=== PATIENT | male | born 1975 | race Caucasian/White ===

== ENCOUNTER 2022-10-16 15:20 | Inpatient (IN) | payer MEDICAID ==
[~2022-10-16] VITALS: Ht 188 cm; Wt 67.8 kg
--- NOTE | 2022-10-16 16:00 | NUR ---
ADMIT NOTE: Pt. admitted from [facility] on 5150 for DTS. 5150 states, "You present with hopelessness andhelplessness, and do not feel "Important or useful". Pt. reports SI 3 days ago after feeling disrespected by his parents, pt. states, "They are not loyal". Pt. reports he had plan to OD on insulin. Pt. reports SA by OD with insulin back in May 2022 which the pt. only went to an urgent care for. Pt. reports no previous psych hx. Pt. is a type 1 diabetic and was started on hospital protocol. Pt. also has hx of hyperlipidemia. Pt. currently denies SI. Pt. reports recent loss of job and housing. Pt. reports he does not have insurance to get insulin. Pt. requesting assistance getting on medi-[place]. Pt.
[2022-10-16] MEDS ORDERED: magnesium hydroxide 30ml (MOM) UD suspension PO PRN (16:10)
[2022-10-16] MEDS ORDERED: NICOTINE POLACRILEX 2 MG LOZENGE BC PRN (16:10)
[2022-10-16] MEDS ORDERED: loperamide 2mg capsule PO PRN (16:10)
[2022-10-16] MEDS ORDERED: acetaminophen 325mg tablet PO PRN ×2 (16:10)
[2022-10-16] MEDS ORDERED: mag hydrox/Alum hydrox/simeth 30ml oral suspension PO PRN (16:10)
[2022-10-16 16:21] VITALS: BP 108/85; PULSE 124; RESP 12; TEMP 98.3; O2SAT 97
[2022-10-16 16:50] VITALS: RESP 12; O2SAT 97
[2022-10-16] MEDS ORDERED: INSU100V55 SQ (17:53)
[2022-10-16] MEDS ORDERED: ATOR10TA87 PO (17:53)
[2022-10-16] MEDS ORDERED: NOVRI (17:53)
[2022-10-16] MEDS ORDERED: MESSAGE TO PHARMACY PO ONE (18:10)
[2022-10-16] MEDS ORDERED: dextrose 50%-water 50ml dispensing syringe IV PRN ×2 (18:10)
[2022-10-16] MEDS ORDERED: DEXTROSE 15 GM of carb/4 tabs (each vial/BOTTLE has 4 tablets) PO PRN ×2 (18:10)
[2022-10-16] MEDS ORDERED: glucagon, human recombinant 1mg kit SUBCUT PRN (18:10)
[2022-10-16 20:00] VITALS: BP 127/96; PULSE 104; RESP 18; TEMP 97.9; O2SAT 100
[2022-10-16] MEDS ORDERED: insulin glargine (Lantus) pen - multi-dose SQ SCH (21:00)
--- NOTE | 2022-10-16 23:56 | NUR ---
Problem: NOTE: Pt. admitted from [facility] on 5150 for DTS. 5150 states, "You present with hopelessness and helplessness, and do not feel "Important or useful". Pt. reports SI 3 days ago after feeling disrespected by his parents, pt. states, "They are not loyal". Pt. reports he had plan to OD on insulin. Pt. reports SA by OD with insulin back in May 2022 which the pt. only went to an urgent care for. Pt. reports no previous psych hx. Pt. is a type 1 diabetic and was started on hospital protocol. Pt. also has hx of hyperlipidemia. Pt. currently denies SI. Pt. reports recent loss of job and housing. Pt. reports he does not have insurance to get insulin. Pt. requesting assistance getting on medi-[place]. Interventions: Maintained a safe and supportive environment, medication administration/education/monitoring, provided clear and simple instructions, provided active listening and positive encouragement, maintained fall precautions, and maintained Q 15 min safety checks. Response: Pt pleasant and cooperative. Pt remained in the rec room until his dinner tray came at 1999. Pt states he is depressed and going through it. Pt did not want to elaborate. Denies SI. Pts HS blood sugar 305, 12 units lantis given. Pt remained in the rec room watching TV until bedtime. Plan: pt requires medication adjustments and a safe and supportive environment.
[2022-10-17 07:28] VITALS: BP 102/69; PULSE 114; RESP 16; TEMP 97.8; O2SAT 97
[2022-10-17] MEDS: nicotine 21mg patch - 24 hr TD SCH (08:00)
[2022-10-17 08:12] LABS: CHOL/HDL RATIO 3.3 (0.00-4.99); CHOLESTEROL 212 MG/DL (0-200); HDL CHOLESTEROL 65 MG/DL (35-60); LDL CHOLESTEROL 123 MG/DL (50-100); TRIGLYCERIDES 93 MG/DL (20-135)
[2022-10-17 08:27] LABS: HEMOGLOBIN A1C 8.9 % (4.5-6.2)
[2022-10-17] MEDS: insulin Lispro (HumaLOG) vial - multi-dose SQ SCH ×3 (08:47→18:14)
[2022-10-17] MEDS: atorvastatin 10mg tablet PO SCH (08:52)
--- NOTE | 2022-10-17 10:12 | NUR ---
DM Consult: Pt hx T1DM A1C 8.9% admit DX SI plan to OD on insulin per EMR. Pt not appropriate for DM ed at this time. Pt PO 100% first meal WS yesterday and 100% breakfast today per RN. PB d/w RN will add double proteins w/ BIDLD for satiety given large stature- dietary notified. Rec: 1. continue carb controlled diet; double proteins BIDLD for satiety given large stature Addendum: 10/17/22 at [address] Amended: Links added.
--- NOTE | 2022-10-17 16:27 | NUR ---
Nursing Progress Note: Trevor Problem: NOTE: Pt. admitted from [facility] on 5150 for DTS. 5150 states, "You present with hopelessness and helplessness, and do not feel "Important or useful". Pt. reports SI 3 days ago after feeling disrespected by his parents, pt. states, "They are not loyal". Pt. reports he had plan to OD on insulin. Pt. reports SA by OD with insulin back in May 2022 which the pt. only went to an urgent care for. Pt. reports no previous psych hx. Pt. is a type 1 diabetic and was started on hospital protocol. Pt. also has hx of hyperlipidemia. Pt. currently denies SI. Pt. reports recent loss of job and housing. Pt. reports he does not have insurance to get insulin. Pt. requesting assistance getting on medi-[place]. Interventions: Maintained a safe and supportive environment, medication administration/education/monitoring, provided clear and simple instructions, provided active listening and positive encouragement, maintained fall precautions, and maintained Q 15 min safety checks. Response: Patient was received sitting in community room. Patients blood sugar was checked and read 319. Due to being 304 last night patient was moved up to level 2 and was given 14 units of Humalog. Patient refused nicotine lozenge and retuned to watching tv. Patient spent all shift in community room watching tv. Patient spoke very little to others. Patient blood sugar was checked again and read 242. Patient was then moved up to level 3 and given 16 units of Humalog. Patient stated he takes a lot of insulin at home. Patient stated he has waves of feeling suicidal. but was not feeling so now. Plan: pt requires medication adjustments and a safe and supportive environment. Addendum: 10/17/22 at 1804 by Hardy Arenas LVN Patients 1700 blood sugar read 220. Patient is now on level 4
--- NOTE | 2022-10-17 18:06 | NUR ---
LEGAL ADVISER DOCUMENTATION I have reviewed Hardy LEGAL ADVISER documentation.
[2022-10-17 19:26] VITALS: BP 112/76; PULSE 96; RESP 16; TEMP 98.7; O2SAT 99
[2022-10-17 19:45] VITALS: RESP 16; O2SAT 97
[2022-10-17] MEDS: insulin glargine (Lantus) pen - multi-dose SQ SCH (20:53)
--- NOTE | 2022-10-18 05:23 | NUR ---
Nursing Progress Note: Problem: NOTE: Pt. admitted from [facility] on 5150 for DTS. 5150 states, "You present with hopelessness and helplessness, and do not feel "Important or useful". Pt. reports SI 3 days ago after feeling disrespected by his parents, pt. states, "They are not loyal". Pt. reports he had plan to OD on insulin. Pt. reports SA by OD with insulin back in May 2022 which the pt. only went to an urgent care for. Pt. reports no previous psych hx. Pt. is a type 1 diabetic and was started on hospital protocol. Pt. also has hx of hyperlipidemia. Pt. currently denies SI. Pt. reports recent loss of job and housing. Pt. reports he does not have insurance to get insulin. Pt. requesting assistance getting on medi-[place]. Interventions: Maintained a safe and supportive environment, medication administration/education/monitoring, provided clear and simple instructions, provided active listening and positive encouragement, maintained fall precautions, and maintained Q 15 min safety checks. Response: Upon arrival to shift noted patient sitting up in dining room watching TV. Quiet demeanor. Fair eye contact. Tall thin man wearing clean green scrubs with eyeglasses. Appears to have sad affect. Denies SI, HI, AH and VH. Report that the reason behind why he is, here, is a long story. Reports loss of job, loss of insurance, needing new provider and new therapist in addition to difficulty getting his prescriptions filled. Patient is a brittle diabetic. Patient reports high blood sugars today and a lot of insulin. Reports that he is aware when his blood glucose is too low. At , Held 1 unit Humalog per sliding orders per nursing judgement and apparent patient hesitation. Reports that he had a lot of insulin on . Administered Lantus 24 units at . Reports MD was being conservative in ordering 24 units as he takes 36 units at home. [place] comfortable and confirms that he will let nurse know if he feels a drop in the blood sugar level. At 0 patient reports to nurse that he needs his blood glucose checked. BG resulted critical LOW 48. Gave patient a sandwich, juice and 2 cheese sticks. Refused glucose tabs per PRN orders. Follow-up blood glucose resulted at 76. Followed up a 3rd check of 167. Patient states, Okay Im good. No PRNs given. Compliant with meds. Will continue to monitor. Plan: pt requires medication adjustments and a safe and supportive environment.
[2022-10-18 07:00] VITALS: RESP 16; O2SAT 98
[2022-10-18 08:00] VITALS: BP 114/73; PULSE 86; RESP 16; TEMP 97.9; O2SAT 98
[2022-10-18] MEDS ORDERED: ESCITALOPRAM OXALATE 5 MG TABLET PO SCH (08:00)
[2022-10-18] MEDS: nicotine 21mg patch - 24 hr TD SCH (08:00)
[2022-10-18] MEDS: insulin Lispro (HumaLOG) vial - multi-dose SQ SCH ×3 (08:25→18:24)
[2022-10-18] MEDS: atorvastatin 10mg tablet PO SCH (08:49)
--- NOTE | 2022-10-18 15:37 | NUR ---
Nursing Progress Note: Problem : Pt. admitted from [facility] on 5150 for DTS. 5150 states, "You present with hopelessness and helplessness, and do not feel "Important or useful". Pt. reports SI 3 days ago after feeling disrespected by his parents, pt. states, "They are not loyal". Pt. reports he had plan to OD on insulin. Interventions : Introduced self and established rapport, maintained a safe and supportive environment, ensured contract for safety, provided active listening, monitored blood sugars and maintained diabetic protocol as ordered, and maintained Q 15min safety checks. Response : Received pt. sleeping in bed at the beginning of the shift. He attended breakfast in the Group Room and remained up throughout much of the shift watching TV and playing [employer]. Pt. was not observed to be interacting much with others. This publicity writer introduced herself and 1:1 was completed, pt. presents as cooperative, pleasant, and guarded. He exhibits a blunted affect. Pt. denies any S/I, H/I, A/V/PAYNE, and no delusional statements were made. When questioned regarding any depression or anxiety, pt. stated in a manner which appears to be minimizing, "I'm pretty neutral right now." This publicity writer monitored pt's blood sugars before each meal and maintained the diabetic protocol per orders. Pt. tolerated this well. Plan : Pt. requires interruption of current crisis, medication adjustments, and a safe and supportive environment.
[2022-10-18 19:28] VITALS: RESP 16; O2SAT 98
[2022-10-18 19:50] VITALS: BP 130/88; PULSE 76; RESP 16; TEMP 98.5; O2SAT 98
[2022-10-18] MEDS: ESCITALOPRAM OXALATE 5 MG TABLET PO SCH (20:03)
[2022-10-18] MEDS: insulin glargine (Lantus) pen - multi-dose SQ SCH (20:15)
--- NOTE | 2022-10-19 03:59 | NUR ---
Nursing Progress Note: Problem : Patient is brittle diabetic, closely monitored accucheck and mood. Blood sugars are more stable than prior day. Also patient wants to discharge sooner than what is suggested. Interventions : Introduced self and established rapport, maintained a safe and supportive environment, ensured contract for safety, provided active listening, monitored blood sugars and maintained diabetic protocol as ordered, and maintained Q 15min safety checks. Response : Upon arrival to shift noted patient sitting up in dining room playing at[employer]. Noted to be wearing clean green scrubs with eyeglasses and hair brushed/slicked back. Flat affect noted. Denies SI, HI, AH and VH. Reports disappointment in not discharging tomorrow and that providers said itd be October 23. Patient is concerned due to needing to turn in paperwork. Blood glucose trend improved from yesterday. Compliant with HS meds. No PRNs given. Stayed up playing atVenuire in dining room late. Will continue to monitor. Plan : Pt. requires interruption of current crisis, medication adjustments, and a safe and supportive environment.
[2022-10-19 07:00] VITALS: RESP 12; O2SAT 99
[2022-10-19 08:00] VITALS: BP 132/82; PULSE 80; RESP 12; TEMP 97.4; O2SAT 99
[2022-10-19] MEDS: nicotine 21mg patch - 24 hr TD SCH (08:00)
[2022-10-19] MEDS: atorvastatin 10mg tablet PO SCH (08:13)
[2022-10-19] MEDS: insulin Lispro (HumaLOG) vial - multi-dose SQ SCH ×3 (08:21→18:23)
[2022-10-19] MEDS ORDERED: traMADol 50MG tablet PO PRN (08:50)
[2022-10-19 08:53] LABS: HBSAG SCREEN Negative (Negative); HEP B CORE AB, TOT Negative (Negative)
--- NOTE | 2022-10-19 09:35 | NUR ---
Initial: Pt admit for depression with SI. Pt currently on a CHO controlled diet with double protein BIDLD and eating well, documented with 100% PO intake meeting estimated nutrient needs. LBM 10/18 per EMR. No further nutrition intervention implemented at this time. Will continue to follow and make recommendations as appropriate. Recommendations: 1. Continue carb controlled diet; double protein BIDLD for satiety given large stature 2. Bowel care PRN 3. Weekly scaled weights Addendum: 10/19/22 at [address] Amended: Links added.
--- NOTE | 2022-10-19 15:22 | NUR ---
Nursing Progress Note: Problem : Pt. admitted from [facility] on 5150 for DTS. 5150 states, "You present with hopelessness and helplessness, and do not feel "Important or useful". Pt. reports SI 3 days ago after feeling disrespected by his parents, pt. states, "They are not loyal". Pt. reports he had plan to OD on insulin. Interventions : Maintained a safe and supportive environment, ensured contract for safety, provided active listening and positive encouragement, monitored blood sugars and maintained diabetic protocol as ordered, and maintained Q 15min safety checks. Response : Received pt. sleeping in bed at the beginning of the shift. He awoke early and attended breakfast in the Group Room. Pt. again remained up throughout the morning and much of the day, sitting in the Group Room, however he remains withdrawn form others. He continues to exhibit a blunted affect. Pt. is guarded with conversation and again appears to be minimizing any mental health s/s. He denies any S/I and states in a guarded manner, "I'm pretty good." Pt. does endorse his desire to discharge and return back home and reports he is just waiting to set things up with the psychosocial rehabilitation counselor. This underwriter solicitation director monitored pt's blood sugars before each meal and maintained the diabetic protocol per orders. Pt. continues to tolerate this well. Plan : Pt. medication adjustments, and a safe and supportive environment.
--- NOTE | 2022-10-19 15:36 | NUR ---
[facility] REFERRAL Completed and sent [facility] referral. WINSTON Zee
[2022-10-19 19:00] VITALS: BP 126/71; PULSE 73; RESP 14; TEMP 98.1; O2SAT 100
[2022-10-19 19:30] VITALS: RESP 14; O2SAT 100
[2022-10-19] MEDS: insulin glargine (Lantus) pen - multi-dose SQ SCH (20:34)
[2022-10-19] MEDS: ESCITALOPRAM OXALATE 5 MG TABLET PO SCH (20:39)
--- NOTE | 2022-10-20 04:24 | NUR ---
Nursing Progress Note: Problem : Pt. admitted from [facility] on 5150 for DTS. 5150 states, "You present with hopelessness and helplessness, and do not feel "Important or useful". Pt. reports SI 3 days ago after feeling disrespected by his parents, pt. states, "They are not loyal". Pt. reports he had plan to OD on insulin. Interventions : Maintained a safe and supportive environment, ensured contract for safety, provided active listening and positive encouragement, monitored blood sugars and maintained diabetic protocol as ordered, and maintained Q 15min safety checks. Response: Upon arrival to shift noted patient walking into doctors office for chat. Later seen playing [employer] in group room after dinner. Wearing clean green scrubs with good hygiene, hair slicked back and wearing glasses. Keeps to himself. Withdrawn. Not seen socializing with cohort. Eager to get out of here. [facility] referral sent today. Pleasant, calm, and cooperative Compliant with HS med except refused Lexapro this shift. Reports it makes his thinking less clear. According to Jarekeys note, Lexapro will be dcd since patient reports no positive effects. Hospitalist added Lisinopril (renal protection) for HTN on dayshift. No PRNs this shift. Will continue to monitor. Plan : Pt. medication adjustments, and a safe and supportive environment. Plan : Pt. medication adjustments, and a safe and supportive environment.
[2022-10-20 07:09] VITALS: BP 122/77; PULSE 81; RESP 16; TEMP 98; O2SAT 100
[2022-10-20 07:19] LABS: BASOPHILS % (AUTO) 0.5 % (0-1); EOSINOPHILS # (AUTO) 0.2 X10'3 (0-0.9); EOSINOPHILS % (AUTO) 2.6 % (0-6); HEMATOCRIT 43.5 % (42.0-52.0); HEMOGLOBIN 14.9 g/dl (14.0-17.9); LYMPHOCYTES # (AUTO) 2.8 X10'3 (1.1-4.8); LYMPHOCYTES % (AUTO) 44.5 % (21-51); MEAN CORPUSCULAR HEMOGLOBIN 31.6 PG (27.0-31.0); MEAN CORPUSCULAR HGB CONC 34.3 g/dL (33.0-36.5); MEAN CORPUSCULAR VOLUME 92.2 FL (78-98); MEAN PLATELET VOLUME 8.7 FL (7.4-10.4); MONOCYTES # (AUTO) 0.5 X10'3 (0-0.9); MONOCYTES % (AUTO) 8.5 % (2-12); NEUTROPHILS # (AUTO) 2.8 X10'3 (1.8-7.7); NEUTROPHILS % (AUTO) 43.9 % (42-75); PLATELET COUNT 194 X10'3 (140-440); RED BLOOD COUNT 4.72 X10'6 (4.70-6.10); RED CELL DISTRIBUTION WIDTH 12.7 % (11.5-14.5); WHITE BLOOD COUNT 6.3 X10'3 (4.5-11.0)
[2022-10-20 07:34] LABS: ALANINE AMINOTRANSFERASE 9 U/L (12-78); ALBUMIN/GLOBULIN RATIO 1.4 (1.1-1.5); ALKALINE PHOSPHATASE 37 IU/L (46-116); ANION GAP 9 (8-16); ASPARTATE AMINO TRANSFERASE 15 U/L (10-37); BILIRUBIN,TOTAL 0.6 MG/DL (0.1-1.0); BLOOD UREA NITROGEN 21 MG/DL (7-18); BUN/CREATININE RATIO 22.3 (10.0-20.0); CHLORIDE 104 MMOL/L (99-107); CREATININE 0.94 MG/DL (0.60-1.10); GLUCOSE 58 MG/DL (70-104); POTASSIUM 3.6 MMOL/L (3.5-5.1); SODIUM 142 MMOL/L (135-145); TOTAL CARBON DIOXIDE 29.5 MMOL/L (24-32); TOTAL PROTEIN 6.8 G/DL (6.4-8.2); eGFR 86 ML/MIN
[2022-10-20] MEDS: atorvastatin 10mg tablet PO SCH (07:35)
[2022-10-20] MEDS: lisinopril 10 MG tablet PO SCH (07:36)
[2022-10-20 07:55] VITALS: RESP 16; O2SAT 100
[2022-10-20] MEDS: insulin Lispro (HumaLOG) vial - multi-dose SQ SCH ×2 (13:20→21:00)
[2022-10-20] MEDS ORDERED: aspirin 81mg, enteric-coated 1 TAB TABLET.DR PO ONE (15:05)
--- NOTE | 2022-10-20 17:07 | NUR ---
Nursing Progress Note: Problem : Pt. admitted from [facility] on 5150 for DTS. 5150 states, "You present with hopelessness and helplessness, and do not feel "Important or useful". Pt. reports SI 3 days ago after feeling disrespected by his parents, pt. states, "They are not loyal". Pt. reports he had plan to OD on insulin. Interventions : Maintained a safe and supportive environment, ensured contract for safety, provided active listening and positive encouragement, monitored blood sugars and maintained diabetic protocol as ordered, and maintained Q 15min safety checks. Response: Patient seem reserved and quiet, was very agreeable to medication and BG testing during shift, Patient spends most of his time in the community room during the morning hours watching films with other client or keeping to self, playing [email or web address]. Patient was not medicated for morning carb intake because of his BG, but was during lunch, will continue to monitor. Patient treated with insulin at lunch and saved mandarin oranges just incase he feels low BG. Started on ASA today by PA. Plan : Pt. medication adjustments, and a safe and supportive environment. Plan : Pt. medication adjustments, and a safe and supportive environment.
[2022-10-20 19:00] VITALS: RESP 16; O2SAT 99
[2022-10-20 19:50] VITALS: BP 118/73; PULSE 72; RESP 16; TEMP 97.7; O2SAT 99
[2022-10-20] MEDS: insulin glargine (Lantus) pen - multi-dose SQ SCH (20:57)
[2022-10-20] MEDS: ESCITALOPRAM OXALATE 5 MG TABLET PO SCH (21:00)
--- NOTE | 2022-10-21 05:24 | NUR ---
Nursing Progress Note: Problem : Pt. admitted from [facility] on 5150 for DTS. 5150 states, "You present with hopelessness and helplessness, and do not feel "Important or useful". Pt. reports SI 3 days ago after feeling disrespected by his parents, pt. states, "They are not loyal". Pt. reports he had plan to OD on insulin. Interventions : Maintained a safe and supportive environment, ensured contract for safety, provided active listening and positive encouragement, monitored blood sugars and maintained diabetic protocol as ordered, and maintained Q 15min safety checks. Response: This patient was in community room following shift change. He socialized with his peers. 1:1 Interview in the community room. The patient speaks in a quiet voice with a regular rhythm. He denies S/I, H/I, or any hallucinations. Patient was medication compliant. No distress. Plan : Pt. medication adjustments, and a safe and supportive environment.
[2022-10-21 07:00] VITALS: BP 128/73; PULSE 97; RESP 16; TEMP 97.5; O2SAT 99
[2022-10-21] MEDS: atorvastatin 10mg tablet PO SCH (07:34)
[2022-10-21] MEDS: lisinopril 10 MG tablet PO SCH (07:36)
[2022-10-21] MEDS ORDERED: aspirin 81mg, enteric-coated 1 TAB TABLET.DR PO SCH (08:00)
[2022-10-21] MEDS ORDERED: lisinopril 2.5mg tablet PO SCH (08:00)
[2022-10-21] MEDS: insulin Lispro (HumaLOG) vial - multi-dose SQ SCH ×2 (08:49→13:42)
[2022-10-21 08:50] VITALS: BP_SYST 128; PULSE 53
--- NOTE | 2022-10-21 16:49 | NUR ---
Nurse note: PT requesting to leave now. Spoke with Galilea JOSEPH and she requests to convince him to wait until tomorrow for a proper discharge and manager social responsibility discharge plan. Spoke with pt and he states he will DC home and has his followup appt set up and requests the manager social responsibility follow up with him and call in his prescriptions tomorrow. Explained to pt that is not possible after discharge. Pt still wants to discharge today.
--- NOTE | 2022-10-21 17:25 | NUR ---
DISCHARGE NOTE: Patient is voluntary status and requested discharge. Patient denies SI. Patient reports that his is at home waiting for him. He is going to get his truck and then go home. Patient laughs that he is ready for a real shave. Patient escorted to front end assistant where they retrieved his knife. Patient has all belongings, medications. Patient is discharged in stable condition.
== END 2022-10-21 17:35 | disposition home or self-care (01) | DRG 755 ==
LOC: ADULT MH 15:58
PROVIDERS: ADMIT Psychiatry & Neurology Psychiatry; ATTEND Psychiatry & Neurology Psychiatry
DX: F43.25 Adjustment disorder with mixed disturbance of emotions and conduct (principal); E10.65 Type 1 diabetes mellitus with hyperglycemia; E78.5 Hyperlipidemia, unspecified; F17.210 Nicotine dependence, cigarettes, uncomplicated; F43.21 Adjustment disorder with depressed mood; F32.A Depression, unspecified; I10 Essential (primary) hypertension; Z79.4 Long term (current) use of insulin; Z63.9 Problem related to primary support group, unspecified; Z79.899 Other long term (current) drug therapy; Z56.0 Unemployment, unspecified
CPT/HCPCS: 36415; 80053; 80061; 82948; 83036; 85025; 86704; 86705; 87081; 87340; J1815

== ENCOUNTER 2023-08-24 08:59 | Inpatient (IN) | payer MEDICAID ==
[~2023-08-24] VITALS: Ht 188 cm; Wt 69.0 kg
[~2023-08-24 08:59] MED LIST: ATOR10TA87 PO; INSU100V55 SQ; NOVRI
[2023-08-24] MEDS ORDERED: mag hydrox/Alum hydrox/simeth 30ml oral suspension PO PRN (10:25)
[2023-08-24] MEDS ORDERED: loperamide 2mg capsule PO PRN (10:25)
[2023-08-24] MEDS ORDERED: acetaminophen 325mg tablet PO PRN ×2 (10:25)
[2023-08-24] MEDS ORDERED: magnesium hydroxide 30ml (MOM) UD suspension PO PRN (10:25)
[2023-08-24] MEDS ORDERED: glucagon, human recombinant 1mg kit SUBCUT PRN (11:10)
[2023-08-24] MEDS ORDERED: DEXTROSE 15 GM of carb/4 tabs (each vial/BOTTLE has 4 tablets) PO PRN ×2 (11:10)
[2023-08-24] MEDS ORDERED: INSU100V11 SQ (11:27)
[2023-08-24] MEDS ORDERED: BUPR-317 PO (11:27)
[2023-08-24] MEDS ORDERED: INSU100V9 SQ (11:32)
[2023-08-24] MEDS: INSULIN LISPRO 100 UNIT/ML INSULN.PEN MULTI-DOSE SQ SCH (12:28)
[2023-08-24] MEDS ORDERED: INSULIN LISPRO 100 UNIT/ML INSULN.PEN MULTI-DOSE SQ SCH (13:00)
[2023-08-24 19:00] VITALS: BP 112/69; PULSE 83; RESP 20; TEMP 97.2; O2SAT 100
[2023-08-24] MEDS ORDERED: insulin glargine (Lantus) pen - multi-dose SQ SCH ×2 (21:00)
[2023-08-24] MEDS: insulin glargine (Lantus) pen - multi-dose SQ SCH (21:03)
[2023-08-25 07:00] VITALS: RESP 14; O2SAT 99
[2023-08-25 07:27] LABS: HEMOGLOBIN A1C 8.2 % (4.5-6.2)
[2023-08-25 07:31] LABS: CHOL/HDL RATIO 3.2 (0.00-4.99); CHOLESTEROL 208 MG/DL (0-200); HDL CHOLESTEROL 65 MG/DL (35-60); LDL CHOLESTEROL 118 MG/DL (50-100); TRIGLYCERIDES 91 MG/DL (20-135)
[2023-08-25] MEDS: buPROPion SR 150mg tablet PO SCH (07:58)
[2023-08-25] MEDS ORDERED: dextrose 50%-water 50ml dispensing syringe IV PRN ×2 (08:30)
[2023-08-25] MEDS ORDERED: glucagon, human recombinant 1mg kit SUBCUT PRN (08:30)
[2023-08-25] MEDS ORDERED: DEXTROSE 15 GM of carb/4 tabs (each vial/BOTTLE has 4 tablets) PO PRN ×2 (08:30)
[2023-08-25 08:36] VITALS: BP 154/98; PULSE 66; RESP 14; TEMP 98.4; O2SAT 97
[2023-08-25] MEDS: INSULIN LISPRO 100 UNIT/ML INSULN.PEN MULTI-DOSE SQ SCH (12:00)
[2023-08-25 19:30] VITALS: RESP 16; O2SAT 97
[2023-08-25 19:56] VITALS: BP 125/86; PULSE 89; RESP 16; TEMP 98; O2SAT 99
[2023-08-25] MEDS: insulin glargine (Lantus) pen - multi-dose SQ SCH (21:23)
[2023-08-26 07:00] VITALS: BP 107/70; PULSE 83; RESP 14; TEMP 97.6; O2SAT 99
[2023-08-26] MEDS: ESCITALOPRAM 10 mg tablet 10 MG TABLET PO SCH (08:40)
[2023-08-26 09:31] VITALS: BP 107/70; PULSE 83; RESP 14; TEMP 97.6; O2SAT 99
[2023-08-26] MEDS ORDERED: ESCI-8 PO (16:30)
== END 2023-08-26 17:30 | disposition home or self-care (01) | DRG 751 ==
LOC: ADULT MH 10:40
PROVIDERS: ADMIT Psychiatry & Neurology Psychiatry; ATTEND Psychiatry & Neurology Psychiatry
DX: F33.1 Major depressive disorder, recurrent, moderate (principal); R45.851 Suicidal ideations; E10.9 Type 1 diabetes mellitus without complications; F41.9 Anxiety disorder, unspecified; F90.9 Attention-deficit hyperactivity disorder, unspecified type; F17.210 Nicotine dependence, cigarettes, uncomplicated; E78.00 Pure hypercholesterolemia, unspecified; F15.90 Other stimulant use, unspecified, uncomplicated; Z79.4 Long term (current) use of insulin; Z91.51 Personal history of suicidal behavior; Z55.5 Less than a high school diploma; Z56.0 Unemployment, unspecified
CPT/HCPCS: 36415; 80061; 82948; 83036; 87081; J1815

== ENCOUNTER 2023-08-29 19:01 | Emergency (ER) | payer MEDICAID ==
[~2023-08-29] VITALS: Ht 61 cm; Wt 70.5 kg
[~2023-08-29 19:01] MED LIST changes: -ATOR10TA87 PO; +ESCI-8 PO; +INSU100V11 SQ; -INSU100V55 SQ; +INSU100V9 SQ; -NOVRI
[2023-08-29 19:07] VITALS: BP 123/82; PULSE 86; O2SAT 97
[2023-08-29] MEDS ORDERED: LIDOcaine 1% W/epiNEPHrine 1:100,000 20ml vial SQ ONE (20:45)
[2023-08-29] MEDS: LIDOcaine 1% W/epiNEPHrine 1:100,000 20ml vial SQ ONE (21:13)
[2023-08-29] MEDS ORDERED: CEPH-585 PO (22:20)
[2023-08-29 22:24] VITALS: RESP 17; TEMP 99.2
== END 2023-08-29 22:25 | disposition home or self-care (01) ==
LOC: ER 19:02
DX: S61.412A Laceration without foreign body of left hand, initial encounter (principal); Z79.899 Other long term (current) drug therapy; Z79.4 Long term (current) use of insulin; W26.9XXA Contact with unspecified sharp object(s), initial encounter; Y93.89 Activity, other specified; Y92.89 Other specified places as the place of occurrence of the external cause; Y99.8 Other external cause status
CPT/HCPCS: 12001; 99283; A6222; J7030; A6258; A6449